=== PATIENT | female | born 1965 | race Caucasian/White ===

== ENCOUNTER 2017-07-08 09:46 | Emergency (ER) | payer OTHER ==
[~2017-07-08] VITALS: Ht 157.5 cm; Wt 65.0 kg
[~2017-07-08 09:46] MED LIST: ASPI-1159 PO; ATEN50TA
[2017-07-08] MEDS ORDERED: KETOROLAC 60MG/2ML VIAL IM STA (14:24)
[2017-07-08 14:55] LABS: BASOPHILS % 1.2 % (0.0-2.0); EOSINOPHILS % 1.7 % (0.0-5.0); HEMATOCRIT. 39.1 % (36.0-48.0); HEMOGLOBIN. 13.3 g/dL (12.0-16.0); LYMPHOCYTES % 31.4 % (20.0-50.0); MEAN CORPUSCULAR HEMOGLOBIN 28.3 pg (28.0-32.0); MEAN CORPUSCULAR VOLUME 83.1 fL (81.0-99.0); MONOCYTES % 8.2 % (2.0-8.0); NEUTROPHILS % 57.5 % (40.0-76.0); PLATELET 282 x1000/uL (130-400); RED BLOOD CELL COUNT 4.71 mill/uL (4.2-5.4)
[2017-07-08 15:02] LABS: CARBON DIOXIDE 30 mEq/L (21-32); CHLORIDE 103 mEq/L (98-107)
[2017-07-08 16:10] VITALS: BP 159/86
== END 2017-07-08 16:20 | disposition home or self-care (01) ==
LOC: ER 10:25
DX: R05 Cough (principal); I10 Essential (primary) hypertension; Z79.82 Long term (current) use of aspirin
CPT/HCPCS: 36415; 71010; 80053; 81025; 85025; 96372; 99285; J1885; Z7610

== ENCOUNTER 2019-01-29 08:35 | Emergency (ER) | payer MEDICAID, OTHER ==
[~2019-01-29] VITALS: Ht 167.6 cm; Wt 79.0 kg
[2019-01-29] MEDS ORDERED: KETOROLAC 30MG/ML VIAL IV STA (10:23)
[2019-01-29] MEDS ORDERED: SODIUM CHLORIDE 0.9% 1000ML BAG (SEPSIS BOLUS) IV ONE (10:30)
[2019-01-29] MEDS ORDERED: AMOXICILLIN/POTASSIUM CLAVULANATE 875/125MG TAB PO ONE (10:30)
[2019-01-29] MEDS ORDERED: ACETAMINOPHEN 325MG TABLET PO ONE (10:30)
[2019-01-29] MEDS ORDERED: METOCLOPRAMIDE HCL 10MG/2ML VIAL IV ONE (10:30)
[2019-01-29 11:05] LABS: CLARITY URINE CLEAR (CLEAR); COLOR URINE YELLOW (YELLOW); KETONES URINE NEGATIVE (NEGATIVE); LEUKOCYTE ESTERASE URINE NEGATIVE (NEGATIVE); NITRITE URINE NEGATIVE (NEGATIVE); OCCULT BLOOD URINE TRACE (NEGATIVE); PROTEIN URINE 1+ (NEGATIVE); SPECIFIC GRAVITY URINE 1.006 (1.005-1.030); UROBILINOGEN URINE 0.2 E.U./dL (0.2-1.0)
[2019-01-29 11:06] LABS: BASOPHILS % 0.8 % (0.0-2.0); EOSINOPHILS % 0.1 % (0.0-5.0); HEMOGLOBIN. 12.7 g/dL (12.0-16.0); LYMPHOCYTES % 13.7 % (20.0-50.0); MEAN CORPUSCULAR HEMOGLOBIN 28.6 pg (28.0-32.0); MEAN CORPUSCULAR VOLUME 83.4 fL (81.0-99.0); MEAN PLATELET VOLUME 9.3 fl (7.4-10.4); MONOCYTES % 5.7 % (2.0-8.0); NEUTROPHILS % 79.7 % (40.0-76.0); PLATELET 256 x1000/uL (130-400); RED BLOOD CELL COUNT 4.44 mill/uL (4.2-5.4); RED CELL DISTRIBUTION WIDTH 13.7 % (11.6-14.6)
[2019-01-29 11:12] LABS: CHLORIDE 102 mEq/L (98-107)
[2019-01-29 12:01] VITALS: BP 133/73
== END 2019-01-29 12:30 | disposition home or self-care (01) ==
LOC: ER 08:35 → CANBEDREQ 14:50
DX: H66.93 Otitis media, unspecified, bilateral (principal); I10 Essential (primary) hypertension; Z98.890 Other specified postprocedural states; Z79.82 Long term (current) use of aspirin
CPT/HCPCS: 36415; 71045; 80053; 81003; 83605; 84145; 84484; 85025; 85610; 87040; 87070; 87086; 87430; 87804; 93005; 96374; 96375; 99284; J1885; J2765; J7030

== ENCOUNTER 2019-01-31 03:18 | Inpatient (IN) | payer MEDICAID ==
[~2019-01-31] VITALS: Ht 152.4 cm; Wt 84.4 kg
[2019-01-31] MEDS ORDERED: ACETAMINOPHEN 325MG TABLET PO STA (03:58)
[2019-01-31] MEDS ORDERED: SODIUM CHLORIDE 0.9% 1000ML BAG (SEPSIS BOLUS) IV ONE (04:00)
[2019-01-31] MEDS ORDERED: KETOROLAC 15MG/ML VIAL IV ONE (04:15)
[2019-01-31 04:20] LABS: BASOPHILS % 0.4 % (0.0-2.0); HEMATOCRIT. 36.2 % (36.0-48.0); HEMOGLOBIN. 12.3 g/dL (12.0-16.0); MEAN CORPUSCULAR HEMOGLOBIN 28.4 pg (28.0-32.0); MEAN CORPUSCULAR VOLUME 83.5 fL (81.0-99.0); MEAN PLATELET VOLUME 9.2 fl (7.4-10.4); MONOCYTES % 5.8 % (2.0-8.0); NEUTROPHILS % 82.8 % (40.0-76.0); PLATELET 240 x1000/uL (130-400); RED BLOOD CELL COUNT 4.33 mill/uL (4.2-5.4); RED CELL DISTRIBUTION WIDTH 14.1 % (11.6-14.6)
[2019-01-31 04:38] LABS: CHLORIDE 107 mEq/L (98-107)
[2019-01-31 04:59] LABS: CLARITY URINE CLEAR (CLEAR); COLOR URINE YELLOW (YELLOW); KETONES URINE NEGATIVE (NEGATIVE); LEUKOCYTE ESTERASE URINE 1+ (NEGATIVE); NITRITE URINE NEGATIVE (NEGATIVE); OCCULT BLOOD URINE 2+ (NEGATIVE); PH URINE 6.5 (4.5-8.0); PROTEIN URINE 3+ (NEGATIVE); SPECIFIC GRAVITY URINE 1.019 (1.005-1.030)
[2019-01-31] MEDS ORDERED: PIPERACILLIN/TAZOBACTAM 3.375GM/50ML PREMIX IV SCH (05:15)
[2019-01-31 05:22] LABS: *AMPHETAMINES SCREEN URINE NEGATIVE (NEGATIVE); *BARBITURATES SCREEN URINE NEGATIVE (NEGATIVE); *BENZODIAZEPINES SCREEN URINE NEGATIVE (NEGATIVE); *COCAINE SCREEN URINE NEGATIVE (NEGATIVE); METHADONE URINE SCREEN NEGATIVE (NEGATIVE); OPIATES URINE SCREEN NEGATIVE (NEGATIVE); PHENCYCLIDINE URINE SCREEN NEGATIVE (NEGATIVE)
[2019-01-31 05:23] LABS: CANNABINOID URINE SCREEN NEGATIVE (NEGATIVE)
[2019-01-31] MEDS ORDERED: CEFTRIAXONE 1 G PREMIX 50 ML IV ONE (05:30)
[2019-01-31] MEDS: AZITHROMYCIN 500 MG in DEXT 5% WATER 250 ML IV SCH (06:14)
[2019-01-31] MEDS ORDERED: IBUPROFEN 600MG TABLET PO ONE (06:15)
[2019-01-31] MEDS ORDERED: GUAIFENESIN 200MG/10ML SUGAR FREE UDC PO PRN (09:00)
[2019-01-31] MEDS ORDERED: DOCUSATE SODIUM 100MG CAPSULE PO PRN (09:00)
[2019-01-31] MEDS ORDERED: CLONIDINE 0.1MG TABLET PO PRN (09:00)
[2019-01-31] MEDS ORDERED: ONDANSETRON HCL 4MG/2ML INJ IV PRN (09:00)
[2019-01-31] MEDS ORDERED: IPRATROPIUM/ALBUTEROL 0.5-3(2.5)MG/3ML NEB INH PRN (09:00)
[2019-01-31] MEDS ORDERED: MAGNESIUM/ALUMINUM HYDROXIDE/SIMETHICONE 30ML UDC PO PRN (09:00)
[2019-01-31] MEDS: ENOXAPARIN 40MG/0.4ML SYR SUBCUT SCH (10:00)
[2019-01-31 10:06] LABS: PHOSPHORUS 2.3 mg/dL (2.5-4.9)
[2019-01-31] MEDS: ACETAMINOPHEN 325MG TABLET PO PRN (11:49)
[2019-01-31] MEDS: GUAIFENESIN 600MG ER TABLET PO SCH ×2 (11:50→20:57)
[2019-01-31 12:00] VITALS: BP 117/74
[2019-01-31 12:13] VITALS: BP 117/79
[2019-01-31 15:53] LABS: CREATINE KINASE MB FRACTION 1.4 ng/mL (0.5-3.6)
[2019-01-31 16:00] VITALS: BP 165/73
[2019-01-31] MEDS: CEFTRIAXONE 1 G PREMIX 50 ML IV SCH (16:12)
[2019-01-31] MEDS: HYDROCODONE/ACETAMINOPHEN 5/325MG TABLET PO PRN ×2 (16:13→21:02)
[2019-01-31 20:00] VITALS: BP 151/79
[2019-02-01] VITALS: BP 151/77
[2019-02-01] LABS: CREATINE KINASE 159 IU/L (26-192)
[2019-02-01 00:02] LABS: CREATINE KINASE MB FRACTION < 1.0 ng/mL (0.5-3.6)
[2019-02-01] MEDS: ACETAMINOPHEN 325MG TABLET PO PRN ×3 (02:51→21:22)
[2019-02-01 04:00] VITALS: BP 149/90
[2019-02-01] MEDS: AZITHROMYCIN 500 MG in DEXT 5% WATER 250 ML IV SCH (05:13)
[2019-02-01] MEDS: HYDROCODONE/ACETAMINOPHEN 5/325MG TABLET PO PRN (05:24)
[2019-02-01 07:06] LABS: BASOPHILS % 0.5 % (0.0-2.0); EOSINOPHILS % 0.1 % (0.0-5.0); HEMATOCRIT. 31.4 % (36.0-48.0); HEMOGLOBIN. 10.9 g/dL (12.0-16.0); LYMPHOCYTES % 16.4 % (20.0-50.0); MEAN CORPUSCULAR HEMOGLOBIN 28.7 pg (28.0-32.0); MEAN CORPUSCULAR VOLUME 82.5 fL (81.0-99.0); MEAN PLATELET VOLUME 9.4 fl (7.4-10.4); MONOCYTES % 6.6 % (2.0-8.0); NEUTROPHILS % 76.4 % (40.0-76.0); PLATELET 241 x1000/uL (130-400); RED BLOOD CELL COUNT 3.81 mill/uL (4.2-5.4); RED CELL DISTRIBUTION WIDTH 14.2 % (11.6-14.6)
[2019-02-01 08:00] VITALS: BP 138/85
[2019-02-01 08:26] LABS: CHLORIDE 103 mEq/L (98-107)
[2019-02-01] MEDS: GUAIFENESIN 600MG ER TABLET PO SCH ×2 (08:26→20:36)
[2019-02-01 08:39] LABS: HDL CHOLESTEROL 41 mg/dL (40-59); LDL CHOLESTEROL 114 mg/dL (5-100)
[2019-02-01] MEDS: ENOXAPARIN 40MG/0.4ML SYR SUBCUT SCH (09:14)
[2019-02-01 12:00] VITALS: BP 159/86
[2019-02-01] MEDS ORDERED: POTASSIUM CHLORIDE 20MEQ TABLET SR PO NR (12:00)
[2019-02-01] MEDS ORDERED: POTASSIUM CHLORIDE INJ 40 MEQ in DEXT 5% WATER 500 ML IV NR (13:00)
[2019-02-01] MEDS: CEFTRIAXONE 1 G PREMIX 50 ML IV SCH (13:58)
[2019-02-01 16:00] VITALS: BP 128/72
[2019-02-01 20:00] VITALS: BP 153/66
[2019-02-02] VITALS: BP 154/89
[2019-02-02 04:00] VITALS: BP 123/75
[2019-02-02] MEDS ORDERED: AZITHROMYCIN 500MG in DEXTROSE 5% WATER 250ML IV SCH (06:00)
[2019-02-02 06:43] LABS: CHLORIDE 106 mEq/L (98-107)
[2019-02-02 06:48] LABS: HEMATOCRIT. 32.7 % (36.0-48.0); HEMOGLOBIN. 11.3 g/dL (12.0-16.0); MEAN CORPUSCULAR HEMOGLOBIN 28.6 pg (28.0-32.0); MEAN PLATELET VOLUME 9.3 fl (7.4-10.4); PLATELET 262 x1000/uL (130-400); RED BLOOD CELL COUNT 3.94 mill/uL (4.2-5.4); RED CELL DISTRIBUTION WIDTH 14.3 % (11.6-14.6)
[2019-02-02 08:00] VITALS: BP 140/83
[2019-02-02] MEDS: GUAIFENESIN 600MG ER TABLET PO SCH (08:49)
[2019-02-02] MEDS: ENOXAPARIN 40MG/0.4ML SYR SUBCUT SCH (10:00)
[2019-02-02 11:34] VITALS: BP 146/74
[2019-02-02] MEDS ORDERED: AZIT500T5 MT (12:23)
[2019-02-02] MEDS: CEFTRIAXONE 1 G PREMIX 50 ML IV SCH (12:31)
[2019-02-02 13:36] VITALS: BP 142/83
[2019-02-02 16:33] LABS: PLATELET ESTIMATE NORMAL
== END 2019-02-02 14:10 | disposition home or self-care (01) | DRG 720 ==
LOC: ER 03:18 → EDBEDREQTM 04:02 → 6EST 05:30 → EDBEDREQSVC 05:35 → EDBEDREQ 05:35 → EDBEDREQTM 05:35 → ENRESERV 07:05
PROVIDERS: ADMIT Internal Medicine; ATTEND Internal Medicine
DX: A41.9 Sepsis, unspecified organism (principal); J96.00 Acute respiratory failure, unspecified whether with hypoxia or hypercapnia; J18.1 Lobar pneumonia, unspecified organism; E66.9 Obesity, unspecified; N39.0 Urinary tract infection, site not specified; I10 Essential (primary) hypertension; H53.2 Diplopia; Z79.82 Long term (current) use of aspirin; Z79.899 Other long term (current) drug therapy; Z98.891 History of uterine scar from previous surgery; Z68.36 Body mass index [BMI] 36.0-36.9, adult
CPT/HCPCS: 36415; 71045; 80048; 80061; 80305; 82550; 82553; 83036; 83605; 83735; 84100; 84145; 84443; 84484; 93005; 93970; 96365; 96375; 97161; 97165; 99285; J0456; J0696; J1650; J1885; J2405; J2543; J3480; J7030; J7040; J7060

== ENCOUNTER 2019-11-08 23:26 | Inpatient (IN) | payer MEDICAID ==
[~2019-11-08] VITALS: Ht 152.4 cm; Wt 76.7 kg
[~2019-11-08 23:26] MED LIST changes: -ASPI-1159 PO; +ASPI-1497 PO; +AZIT500T8 MT
[2019-11-09] MEDS ORDERED: ONDANSETRON HCL 4MG/2ML INJ IV STA (02:59)
[2019-11-09] MEDS ORDERED: SODIUM CHLORIDE 0.9% 1,000 ML IV ONE (02:59)
[2019-11-09] MEDS ORDERED: FAMOTIDINE 20MG/2ML VIAL IV STA (02:59)
[2019-11-09 03:36] LABS: BASOPHILS % 0.9 % (0.0-2.0); EOSINOPHILS % 1.9 % (0.0-5.0); HEMATOCRIT. 37.2 % (36.0-48.0); HEMOGLOBIN. 12.7 g/dL (12.0-16.0); LYMPHOCYTES % 21.4 % (20.0-50.0); MEAN PLATELET VOLUME 8.9 fl (7.4-10.4); NEUTROPHILS % 66.8 % (40.0-76.0); PLATELET 344 x1000/uL (130-400); RED BLOOD CELL COUNT 4.54 mill/uL (4.2-5.4)
[2019-11-09 03:37] LABS: CLARITY URINE CLEAR (CLEAR); COLOR URINE YELLOW (YELLOW); KETONES URINE NEGATIVE (NEGATIVE); LEUKOCYTE ESTERASE URINE TRACE (NEGATIVE); NITRITE URINE NEGATIVE (NEGATIVE); OCCULT BLOOD URINE TRACE (NEGATIVE); PH URINE 5.5 (4.5-8.0); PROTEIN URINE 1+ (NEGATIVE); UROBILINOGEN URINE 0.2 E.U./dL (0.2-1.0)
[2019-11-09 03:48] LABS: CHLORIDE 105 mEq/L (98-107)
[2019-11-09] MEDS ORDERED: HYDROCODONE/ACETAMINOPHEN 5/325MG TABLET PO PRN (09:30)
[2019-11-09] MEDS ORDERED: ACETAMINOPHEN 325MG TABLET PO PRN (09:30)
[2019-11-09] MEDS ORDERED: ONDANSETRON HCL 4MG/2ML INJ IV PRN (09:30)
[2019-11-09] MEDS ORDERED: MORPHINE SULFATE 2 MG/ML CPJ (NOT FOR IM USE) IV PRN (09:30)
[2019-11-09] MEDS ORDERED: DIATR MEGLU/DIATRIZOATE SOLN 30ML ONE (14:16)
[2019-11-09 16:00] VITALS: BP 153/88
[2019-11-09] MEDS: DIATR MEGLU/DIATRIZOATE SOLN 30ML PO SCH ×2 (19:54→21:37)
[2019-11-09 20:00] VITALS: BP 155/86
[2019-11-09] MEDS ORDERED: IOHEXOL-300 100 ML BOTTLE ONE (23:03)
[2019-11-09 23:17] VITALS: BP 163/86
[2019-11-09] MEDS: CLONIDINE 0.1MG TABLET PO PRN (23:17)
[2019-11-09] MEDS: FAMOTIDINE 20MG TABLET PO SCH (23:17)
[2019-11-10] VITALS: BP 155/82
[2019-11-10] MEDS ORDERED: TRAM50TA PO (00:16)
[2019-11-10 04:00] VITALS: BP 132/79
[2019-11-10 07:51] LABS: BASOPHILS % 0.7 % (0.0-2.0); EOSINOPHILS % 2.8 % (0.0-5.0); HEMATOCRIT. 34.8 % (36.0-48.0); HEMOGLOBIN. 11.7 g/dL (12.0-16.0); LYMPHOCYTES % 32.7 % (20.0-50.0); MEAN CORPUSCULAR HEMOGLOBIN 27.7 pg (28.0-32.0); MEAN CORPUSCULAR VOLUME 82.4 fL (81.0-99.0); MEAN PLATELET VOLUME 8.9 fl (7.4-10.4); MONOCYTES % 11.2 % (2.0-8.0); NEUTROPHILS % 52.6 % (40.0-76.0); PLATELET 299 x1000/uL (130-400); RED BLOOD CELL COUNT 4.22 mill/uL (4.2-5.4); RED CELL DISTRIBUTION WIDTH 14.2 % (11.6-14.6)
[2019-11-10 08:20] LABS: CHLORIDE 104 mEq/L (98-107)
[2019-11-10 12:00] VITALS: BP 131/81
[2019-11-10 14:03] LABS: INR 0.9; PARTIAL THROMBOPLASTIN TIME 30.1 sec (23.4-31.0); PROTHROMBIN TIME 10.3 sec (9.6-11.0)
[2019-11-10] MEDS ORDERED: POTASSIUM CHLORIDE 20MEQ TABLET SR PO NR (15:30)
[2019-11-10 16:00] VITALS: BP 159/91
[2019-11-10] MEDS: CLONIDINE 0.1MG TABLET PO PRN (16:24)
[2019-11-10 20:00] VITALS: BP 148/88
[2019-11-10] MEDS: FAMOTIDINE 20MG TABLET PO SCH (20:35)
[2019-11-11] VITALS: BP 149/80
[2019-11-11 04:00] VITALS: BP 135/81
[2019-11-11 09:34] VITALS: BP 143/84
== END 2019-11-11 10:25 | disposition home or self-care (01) | DRG 241 ==
LOC: ER 23:26 → EDBEDREQ 11-09 04:34 → 6EST 11-09 05:32 → EDBEDREQ 11-09 05:34 → EDBEDREQTM 11-09 05:34 → ENRESERV 11-09 16:23
PROVIDERS: ADMIT Internal Medicine; ATTEND Internal Medicine
DX: K27.9 Peptic ulcer, site unspecified, unspecified as acute or chronic, without hemorrhage or perforation (principal); C78.7 Secondary malignant neoplasm of liver and intrahepatic bile duct; E87.8 Other disorders of electrolyte and fluid balance, not elsewhere classified; E66.01 Morbid (severe) obesity due to excess calories; K21.9 Gastro-esophageal reflux disease without esophagitis; E78.5 Hyperlipidemia, unspecified; I10 Essential (primary) hypertension; M17.11 Unilateral primary osteoarthritis, right knee; Z82.49 Family history of ischemic heart disease and other diseases of the circulatory system; Z68.33 Body mass index [BMI] 33.0-33.9, adult; Z79.2 Long term (current) use of antibiotics; Z79.82 Long term (current) use of aspirin; Z79.899 Other long term (current) drug therapy; Z98.891 History of uterine scar from previous surgery; Z56.0 Unemployment, unspecified
CPT/HCPCS: 36415; 71045; 71250; 74177; 76705; 80048; 80053; 80076; 81003; 82105; 82248; 82378; 84484; 85025; 86301; 93005; 93970; 96361; 96374; 96375; 99285; J2270; J2405; J3490; J7030; Q9963; Q9967

== ENCOUNTER 2020-08-18 18:44 | Emergency (ER) | payer MEDICAID, OTHER ==
[~2020-08-18] VITALS: Ht 152.4 cm; Wt 75.0 kg
[~2020-08-18 18:44] MED LIST changes: +TRAM50TA PO
[2020-08-18] MEDS ORDERED: SODIUM CHLORIDE 0.9% 250 ML IV ONE (20:00)
[2020-08-18 20:47] LABS: CHLORIDE 103 mEq/L (98-107)
[2020-08-18 20:57] LABS: CLARITY URINE CLEAR (CLEAR); COLOR URINE DARK YELLOW (YELLOW); KETONES URINE NEGATIVE (NEGATIVE); LEUKOCYTE ESTERASE URINE NEGATIVE (NEGATIVE); NITRITE URINE NEGATIVE (NEGATIVE); OCCULT BLOOD URINE NEGATIVE (NEGATIVE); PROTEIN URINE NEGATIVE (NEGATIVE); SPECIFIC GRAVITY URINE 1.013 (1.005-1.030)
[2020-08-18 20:58] LABS: HEMATOCRIT. 31.7 % (36.0-48.0); HEMOGLOBIN. 10.4 g/dL (12.0-16.0); INR 1.1; MEAN CORPUSCULAR HEMOGLOBIN 23.5 pg (28.0-32.0); MEAN CORPUSCULAR VOLUME 71.3 fL (81.0-99.0); MEAN PLATELET VOLUME 9.3 fl (7.4-10.4); PLATELET 378 x1000/uL (130-400); PROTHROMBIN TIME 11.9 sec (9.6-11.0); RED BLOOD CELL COUNT 4.44 mill/uL (4.2-5.4); RED CELL DISTRIBUTION WIDTH 18.4 % (11.6-14.6)
[2020-08-18 21:26] LABS: PLATELET ESTIMATE NORMAL
[2020-08-18] MEDS ORDERED: VANCOMYCIN 1 G PREMIX 200 ML IV NR (21:30)
[2020-08-18] MEDS ORDERED: POTASSIUM CHLORIDE 20MEQ TABLET SR PO NR (21:30)
[2020-08-18] MEDS ORDERED: PIPERACILLIN/TAZ 3.375G PREMIX 50 ML IV ONE (21:30)
[2020-08-18] MEDS ORDERED: SODIUM CHLORIDE 0.9% 1000ML BAG (SEPSIS BOLUS) IV NR (21:30)
[2020-08-18] MEDS ORDERED: IOHEXOL-300 100 ML BOTTLE ONE (21:38)
[2020-08-18] MEDS ORDERED: PIPERACILLIN/TAZ 3.375G PREMIX 50 ML IV NR (21:45)
[2020-08-19] MEDS ORDERED: ATENOLOL 25MG TABLET PO ONE (00:45)
[2020-08-19 01:31] VITALS: BP 174/97
== END 2020-08-19 02:05 | disposition short-term general hospital (02) ==
LOC: ER 18:44
DX: A41.9 Sepsis, unspecified organism (principal); D64.9 Anemia, unspecified; I10 Essential (primary) hypertension; R79.89 Other specified abnormal findings of blood chemistry; Z98.890 Other specified postprocedural states; Z79.82 Long term (current) use of aspirin; Z79.899 Other long term (current) drug therapy
CPT/HCPCS: 36415; 71045; 74177; 80053; 81003; 83605; 83690; 83880; 84145; 84484; 85025; 85610; 87040; 87086; 93005; 96374; 96375; 99291; J2543; J3370; J7050; Q9967; Z7610